=== PATIENT | male | born 1975 | race African-American/Black ===

== ENCOUNTER 2017-08-26 22:14 | Emergency (ER) | payer SELFPAY ==
[2017-08-26] MEDS ORDERED: NORMAL SALINE 1000 ML 1,000 ML IV ONE (22:24)
--- NOTE | 2017-08-26 23:04 | ER Document Report ---
ED Medical Screen (RME) - General Chief Complaint: HIGH GLUCLOSE Stated Complaint: POSSIBLE HIGH BLOOD SUGAR Time Seen by Provider: 08/26/17 22:58 Notes: Patient is a 41-year-old male who presents emergency department complaining of lethargy, nausea, vomiting, high blood sugar, urinary frequency for the past month. Patient states that he was diagnosed with diabetes back in March is been taking metformin and glyburide. He states that he is not on insulin or any injectables. States he has not seen a primary care provider since April. TRAVEL OUTSIDE OF THE [place] IN LAST 30 DAYS: No Past Medical History Renal/ Medical History: Denies: Hx Peritoneal Dialysis Physical Exam - Vital signs Vitals: Temp Pulse Resp BP Pulse Ox 98.4 F 109 H 20 163/90 H 98 08/26/17 22:20 08/26/17 22:20 08/26/17 22:20 08/26/17 22:20 08/26/17 22:20 Course - Vital Signs Vital signs: Temp Pulse Resp BP Pulse Ox 98.4 F 109 H 20 163/90 H 98 08/26/17 22:20 08/26/17 22:20 08/26/17 22:20 08/26/17 22:20 08/26/17 22:20
[2017-08-27 00:23] LABS: VENOUS BLOOD HCO3 29.5 mmol/L (20-32); VENOUS BLOOD PH 7.37 (7.30-7.42)
[2017-08-27 00:32] LABS: ALANINE AMINOTRANSFERASE 39 U/L (21-72); ALBUMIN 4.3 g/dL (3.5-5.0); ALKALINE PHOSPHATASE 94 U/L (38-126); ANION GAP 15 (5-19); ASPARTATE AMINO TRANSFERASE 26 U/L (17-59); BILIRUBIN,DIRECT 0.4 mg/dL (0.0-0.4); BILIRUBIN,TOTAL 0.5 mg/dL (0.2-1.3); BLOOD UREA NITROGEN 15 mg/dL (7-20); CARBON DIOXIDE 25 mmol/L (22-30); CHLORIDE 90 mmol/L (98-107); CREATININE RESULT 0.99 mg/dL (0.52-1.25); POTASSIUM 4.7 mmol/L (3.6-5.0); SODIUM 129.5 mmol/L (137-145); TOTAL PROTEIN 7.6 g/dL (6.3-8.2)
[2017-08-27 00:40] LABS: GLUCOSE 537 mg/dL (75-110)
[2017-08-27] MEDS ORDERED: INSULIN REG, HUMAN 100 UNIT/ML 3 ML VIAL (PYX) IV ONE (01:03)
[2017-08-27] MEDS ORDERED: NORMAL SALINE 1000 ML 1,000 ML IV ONE (01:03)
[2017-08-27 01:04] LABS: APPEARANCE,URINE CLEAR; BILIRUBIN,URINE NEGATIVE (NEGATIVE); GLUCOSE, URINE >=500 mg/dL (NEGATIVE); KETONES,URINE NEGATIVE (NEGATIVE); LEUKOCYTE ESTERASE,URINE NEGATIVE (NEGATIVE); NITRITE,URINE NEGATIVE (NEGATIVE); PROTEIN,URINE NEGATIVE (NEGATIVE); URINE SPECIFIC GRAVITY 1.029; UROBILINOGEN,URINE NEGATIVE mg/dL (<2.0)
--- NOTE | 2017-08-27 01:07 | ER Document Report ---
ED General - General Chief Complaint: High Blood Sugar Stated Complaint: POSSIBLE HIGH BLOOD SUGAR Time Seen by Provider: 08/26/17 22:58 Notes: Patient is a 41-year-old male with a past medical history of morbid obesity, type 2 diabetes, hypertension, hyperlipidemia who presents with concerns of hyperglycemia and generalized fatigue. Patient did just move from the area from [place] so does not yet have a local doctor. He notes for the past one month he has had polyuria and polydypsia. Nothing improves or worsens these symptoms. States they are constant and have been worsening since that time. Patient states that he is urinating 2-3 times an hour. Patient does admit to ongoing dietary indiscretions. States he has been taking metformin and glipizide without improvement of his symptoms. He has no history of diabetic ketoacidosis or HHS. He has not had any chest pain, infectious symptoms, abdominal pain, vomiting or diarrhea. TRAVEL OUTSIDE OF THE [place] IN LAST 30 DAYS: No - Related Data Allergies/Adverse Reactions: coconut Adverse Reaction (Severe, Verified 08/26/17 23:07) Swelling of Throat Past Medical History - General Information source: Patient - Social History Smoking Status: Current Every Day Smoker Chew tobacco use (# tins/day): No Frequency of alcohol use: None Drug Abuse: None Lives with: Spouse/Significant other Family History: Reviewed & Not Pertinent Patient has suicidal ideation: No Patient has homicidal ideation: No - Past Medical History Cardiac Medical History: Reports: Hx Hypercholesterolemia, Hx Hypertension Endocrine Medical History: Reports: Hx Diabetes Mellitus Type 2 Renal/ Medical History: Denies: Hx Peritoneal Dialysis Past Surgical History: Reports: Hx Cholecystectomy - in 1999 - Immunizations Hx Diphtheria, Pertussis, Tetanus Vaccination: Yes Review of Systems - Review of Systems Notes: Constitutional: Negative for fever. HENT: Negative for sore throat. Eyes: Negative for visual changes. Cardiovascular: Negative for chest pain. Respiratory: Negative for shortness of breath. Gastrointestinal: Negative for abdominal pain, vomiting or diarrhea. Genitourinary: Negative for dysuria. Musculoskeletal: Negative for back pain. Skin: Negative for rash. Neurological: Negative for headaches, weakness or numbness. 10 point ROS negative except as marked above and in HPI. Physical Exam - Vital signs Vitals: Temp Pulse Resp BP Pulse Ox 98.4 F 109 H 20 163/90 H 98 08/26/17 22:20 08/26/17 22:20 08/26/17 22:20 08/26/17 22:20 08/26/17 22:20 Interpretation: Tachycardic Notes: PHYSICAL EXAMINATION: GENERAL: Morbidly obese male. Well-appearing, well-nourished and in no acute distress. HEAD: Atraumatic, normocephalic. EYES: Pupils equal round and reactive to light, extraocular movements intact, sclera anicteric, conjunctiva are normal. ENT: nares patent, oropharynx clear without exudates. Moderately dry mucous membranes. NECK: Normal range of motion, supple without lymphadenopathy LUNGS: Breath sounds clear to auscultation bilaterally and equal. No wheezes rales or rhonchi. HEART: Regular tachycardia without murmurs ABDOMEN: Morbidly obese abdomen. Soft, nontender, normoactive bowel sounds. No guarding, no rebound. No masses appreciated. EXTREMITIES: Normal range of motion, no pitting or edema. No cyanosis. NEUROLOGICAL: No focal neurological deficits. Moves all extremities spontaneously and on command. PSYCH: Normal mood, normal affect. SKIN: Warm, Dry, normal turgor, no rashes or lesions noted. Course - Re-evaluation Re-evalutation: 08/27/17 01:04 Presentation of hyperglycemia with associated polyuria and polydipsia. Patient denies any symptoms to suggest an acute infectious etiology as the origin of his hyperglycemia. No chest pain to suggest ACS as the etiology. There is no evidence of HHS or diabetic ketoacidosis on laboratories or based on clinical history. Patient's vitals are within normal limits. They deny any acute focal complaints. Treatment with insulin and IV fluids given here in the emergency department with appropriate response of the blood sugar. Patient was instructed to continue taking their metformin and glipizide was increased to 5 mg daily, and patient advised they will likely need to increase dietary modification and may also need medication changes. Indications to return to emergency department as well as the importance of close outpatient follow-up were discussed at length. Patient verbalized understanding of the need for close follow-up and indications to return to the ED. - Vital Signs Vital signs: Temp Pulse Resp BP Pulse Ox 98.4 F 109 H 20 163/90 H 98 08/26/17 22:20 08/26/17 22:20 08/26/17 22:20 08/26/17 22:20 08/26/17 22:20 - Laboratory Result Diagrams: 08/27/17 00:00 Laboratory results interpreted by me: 08/27/17 08/27/17 08/27/17 00:00 00:00 00:41 Sodium 129.5 L Chloride 90 L Glucose 537 H* Hemoglobin A1c % 11.3 H Calcium 11.0 H Urine Glucose (UA) >=500 H Urine Blood SMALL H Discharge - Discharge Clinical Impression: Hyperglycemia, Polydipsia Condition: Good Disposition: HOME, SELF-CARE Additional Instructions: You need to followup urgently with your primary care doctor as your blood sugars were dangerously high today. You did not have any evidence of a dangerous condition associated with these blood sugars at this time. However, it is very important that you get your blood sugars under control. Please take all of your medications exactly as directed. Please increase the glipizide that you already have to 5 mg daily. If after 1 week your blood sugars continue to be elevated above 120 in the morning or 220 at any point during the day, increased to 10 mg daily. You should avoid foods that are high in carbohydrates and sugary foods. Losing weight will also help to better control your blood sugars. Please return to emergency department immediately if you develop weakness, persistent vomiting, confusion, or any other symptoms that are concerning to you. Prescriptions: Glipizide [Glipizide Xl] 10 mg PO DAILY #60 tab.er.[id number]
[2017-08-27 02:59] VITALS: BP 151/88
== END 2017-08-27 02:59 | disposition home or self-care (01) ==
LOC: ER 22:14
DX: E11.65 Type 2 diabetes mellitus with hyperglycemia (principal); Z79.84 Long term (current) use of oral hypoglycemic drugs; F17.200 Nicotine dependence, unspecified, uncomplicated; I10 Essential (primary) hypertension; R00.0 Tachycardia, unspecified; E66.01 Morbid (severe) obesity due to excess calories
CPT/HCPCS: 99284; 96360; 36415; 82962; 80053; 81001; 83036; 82803; J1815; J7030 ×2

== ENCOUNTER 2017-11-21 02:35 | Emergency (ER) | payer SELFPAY ==
[2017-11-21] MEDS ORDERED: NORMAL SALINE 1000 ML 1,000 ML IV ONE ×2 (02:50→03:58)
[2017-11-21 03:24] LABS: ABSOLUTE BASOPHILS # (AUTO) 0.2 10^3/uL (0.0-0.2); ABSOLUTE EOSINOPHILS # (AUTO) 0.3 10^3/uL (0.0-0.6); ABSOLUTE LYMPHOCYTES (AUTO) 2.8 10^3/uL (0.5-4.7); ABSOLUTE MONOCYTES (AUTO) 1.2 10^3/uL (0.1-1.4); ABSOLUTE NEUT (AUTO) 7.1 10^3/uL (1.7-8.2); BASOPHILS % (AUTO) 1.5 % (0-2); EOSINOPHILS % (AUTO) 2.3 % (0-6); HEMATOCRIT 45.9 % (37.9-51.0); HEMOGLOBIN 15.7 g/dL (13.5-17.0); LYMPHOCYTES % (AUTO) 24.2 % (13-45); MEAN CORPUSCULAR HEMOGLOBIN 27.7 pg (27.0-33.4); MEAN CORPUSCULAR HGB CONC 34.2 g/dL (32.0-36.0); MEAN CORPUSCULAR VOLUME 81 fl (80-97); MONOCYTES % (AUTO) 10.1 % (3-13); PLATELET COUNT 236 10^3/uL (150-450); RED BLOOD COUNT 5.66 10^6/uL (4.35-5.55); RED CELL DISTRIBUTION WIDTH 13.8 % (11.5-14.0); SEGMENTED NEUTROPHILS % (AUTO) 61.9 % (42-78); TOTAL CELLS COUNTED % (AUTO) 100 %; WHITE BLOOD COUNT 11.5 10^3/uL (4.0-10.5)
[2017-11-21 03:26] LABS: VENOUS BLOOD BASE EXCESS 0.9 mmol/L; VENOUS BLOOD HCO3 27.5 mmol/L (20-32); VENOUS BLOOD PCO2 50.7 mmHg (35-63); VENOUS BLOOD PH 7.35 (7.30-7.42)
[2017-11-21 03:42] LABS: ANION GAP 18 (5-19); BLOOD UREA NITROGEN 16 mg/dL (7-20); CARBON DIOXIDE 22 mmol/L (22-30); CHLORIDE 93 mmol/L (98-107); POTASSIUM 4.9 mmol/L (3.6-5.0); SODIUM 132.5 mmol/L (137-145)
[2017-11-21] MEDS ORDERED: INSULIN REG, HUMAN 100 UNIT/ML 3 ML VIAL (PYX) IV ONE (03:43)
[2017-11-21 03:51] LABS: GLUCOSE 552 mg/dL (75-110)
[2017-11-21] MEDS ORDERED: ONDANSETRON HCL INJ/PF 4 MG/2 ML SDV IV ONE (04:01)
[2017-11-21] MEDS ORDERED: DIPHENHYDRAMINE HCL 50 MG/ML VIAL IV ONE (04:03)
[2017-11-21] MEDS ORDERED: PROCHLORPERAZINE EDISYLATE INJ 10 MG/2 ML VIAL IV ONE (04:03)
--- NOTE | 2017-11-21 04:05 | ER Document Report ---
ED General - General Chief Complaint: High Blood Sugar Stated Complaint: BLOOD SUGAR PROBLEMS Time Seen by Provider: 11/21/17 02:49 Notes: Patient is a 42-year-old male with a past medical history of morbid obesity and diabetes who presents with nausea, vomiting, hyperglycemia, and feelings of dehydration. Patient reports that he has been taking metformin and glipizide as prescribed but his blood sugars continue to be quite high generally being above 300. He has not been able establish outpatient follow-up due to inability to obtain Medicaid. Nothing improves or worsens his symptoms. No known sick contacts. He denies any chest pain, abdominal pain, or altered mental status. Patient does note that he has had a continuous dull, constant, throbbing headache for the past 2 months ever since his blood sugars have been persistently high and that this is not new or different today. TRAVEL OUTSIDE OF THE [place] IN LAST 30 DAYS: No - Related Data Allergies/Adverse Reactions: coconut Adverse Reaction (Severe, Verified 08/26/17 23:07) Swelling of Throat Past Medical History - General Information source: Patient - Social History Smoking Status: Never Smoker Frequency of alcohol use: None Drug Abuse: None Lives with: Spouse/Significant other Family History: Reviewed & Not Pertinent Patient has suicidal ideation: No Patient has homicidal ideation: No - Past Medical History Cardiac Medical History: Reports: Hx Hypercholesterolemia, Hx Hypertension Endocrine Medical History: Reports: Hx Diabetes Mellitus Type 2 Renal/ Medical History: Reports: Hx Peritoneal Dialysis Past Surgical History: Reports: Hx Cholecystectomy - in 1999 - Immunizations Hx Diphtheria, Pertussis, Tetanus Vaccination: Yes Review of Systems - Review of Systems Notes: Constitutional: Negative for fever. HENT: Negative for sore throat. Eyes: Negative for visual changes. Cardiovascular: Negative for chest pain. Respiratory: Negative for shortness of breath. Gastrointestinal: Positive for vomiting. Genitourinary: Negative for dysuria. Musculoskeletal: Negative for back pain. Skin: Negative for rash. Neurological: Negative for headaches, weakness or numbness. 10 point ROS negative except as marked above and in HPI. Physical Exam - Vital signs Vitals: Temp Pulse Resp BP Pulse Ox 98.7 F 103 H 17 150/82 H 95 11/21/17 02:43 11/21/17 02:43 11/21/17 02:43 11/21/17 02:43 11/21/17 02:43 Interpretation: Tachycardic Notes: PHYSICAL EXAMINATION: GENERAL: Well-appearing, well-nourished and in no acute distress. HEAD: Atraumatic, normocephalic. EYES: Pupils equal round and reactive to light, extraocular movements intact, sclera anicteric, conjunctiva are normal. ENT: nares patent, oropharynx clear without exudates. Dry mucous membranes. NECK: Normal range of motion, supple without lymphadenopathy LUNGS: Breath sounds clear to auscultation bilaterally and equal. No wheezes rales or rhonchi. HEART: Regular rate and rhythm without murmurs ABDOMEN: Soft, nontender, normoactive bowel sounds. No guarding, no rebound. No masses appreciated. EXTREMITIES: Normal range of motion, no pitting or edema. No cyanosis. NEUROLOGICAL: No focal neurological deficits. Moves all extremities spontaneously and on command. PSYCH: Normal mood, normal affect. SKIN: Warm, Dry, normal turgor, no rashes or lesions noted. Course - Re-evaluation Re-evalutation: 11/21/17 04:00 Presentation of asymptomatic hyperglycemia. There is no evidence of HHS or diabetic ketoacidosis on laboratories or based on clinical history. Patient's vitals are within normal limits. They deny any acute focal complaints. Treatment with insulin and IV fluids given here in the emergency department with appropriate response of the blood sugar. Patient is continuing to work to establish outpatient follow-up.. Patient was instructed to continue taking their metformin and advised they will likely need to increase dietary modification and may also need medication changes. I have also increased the patient's glipizide from 10 mg daily to 20 mg daily. At this time will discharge with return precautions and follow-up recommendations. Verbal discharge instructions given a the bedside and opportunity for questions given. Medication warnings reviewed. Patient is in agreement with this plan and has verbalized understanding of return precautions and the need for primary care follow-up in the next 24-72 hours. - Vital Signs Vital signs: Temp Pulse Resp BP Pulse Ox 98.7 F 103 H 17 150/82 H 95 11/21/17 02:43 11/21/17 02:43 11/21/17 02:43 11/21/17 02:43 11/21/17 02:43 - Laboratory Result Diagrams: 11/21/17 03:10 12/30/17 03:10 Laboratory results interpreted by me: 11/21/17 11/21/17 11/21/17 02:43 03:10 03:10 WBC 11.5 H RBC 5.66 H Sodium 132.5 L Chloride 93 L Glucose 552 H* POC Glucose 518 H* Calcium 11.0 H Discharge - Discharge Clinical Impression: Hyperglycemia, Dehydration Condition: Good Disposition: HOME, SELF-CARE Additional Instructions: You need to followup urgently with your primary care doctor as your blood sugars were dangerously high today. You did not have any evidence of a dangerous condition associated with these blood sugars at this time. However, it is very important that you get your blood sugars under control. Please take all of your medications exactly as directed. You should avoid foods that are high in carbohydrates and sugary foods. Losing weight will also help to better control your blood sugars. Please return to emergency department immediately if you develop weakness, persistent vomiting, confusion, or any other symptoms that are concerning to you. Prescriptions: Glipizide [Glipizide Xl] 20 mg PO DAILY #60 tab.er.24
[2017-11-21 04:07] LABS: APPEARANCE,URINE CLEAR; BILIRUBIN,URINE NEGATIVE (NEGATIVE); COLOR,URINE STRAW; GLUCOSE, URINE >=500 mg/dL (NEGATIVE); KETONES,URINE 20 mg/dL (NEGATIVE); LEUKOCYTE ESTERASE,URINE NEGATIVE (NEGATIVE); NITRITE,URINE NEGATIVE (NEGATIVE); PROTEIN,URINE NEGATIVE (NEGATIVE); UROBILINOGEN,URINE NEGATIVE mg/dL (<2.0)
[2017-11-21 05:03] VITALS: BP 126/66
== END 2017-11-21 05:00 | disposition home or self-care (01) ==
LOC: ER 02:35
DX: E11.65 Type 2 diabetes mellitus with hyperglycemia (principal); Z79.84 Long term (current) use of oral hypoglycemic drugs; E86.0 Dehydration; R51 Headache; R11.10 Vomiting, unspecified; I10 Essential (primary) hypertension; R00.0 Tachycardia, unspecified
CPT/HCPCS: 99285; 96361; 96374; 96375; 36415; 82962; 85025; 80048; 81001; 84484; 82803; J1200; J1815; J0780; J7030

== ENCOUNTER → 2018-01-15 | Outpatient (CLI) | payer OTHER ==
[2018-01-15 13:56] LABS: HEMATOCRIT 42.5 % (37.9-51.0); HEMOGLOBIN 14.5 g/dL (13.5-17.0); MEAN CORPUSCULAR HEMOGLOBIN 27.4 pg (27.0-33.4); MEAN CORPUSCULAR HGB CONC 34.2 g/dL (32.0-36.0); MEAN CORPUSCULAR VOLUME 80 fl (80-97); PLATELET COUNT 245 10^3/uL (150-450); WHITE BLOOD COUNT 11.3 10^3/uL (4.0-10.5)
[2018-01-15 14:33] LABS: ALANINE AMINOTRANSFERASE 21 U/L (21-72); ALBUMIN 4.2 g/dL (3.5-5.0); ALKALINE PHOSPHATASE 83 U/L (38-126); ANION GAP 14 (5-19); ASPARTATE AMINO TRANSFERASE 14 U/L (17-59); BILIRUBIN,DIRECT 0.3 mg/dL (0.0-0.4); BILIRUBIN,TOTAL 0.3 mg/dL (0.2-1.3); BLOOD UREA NITROGEN 11 mg/dL (7-20); CALCIUM 10.1 mg/dL (8.4-10.2); CARBON DIOXIDE 24 mmol/L (22-30); CHLORIDE 98 mmol/L (98-107); CHOLESTEROL 106.33 mg/dL (0-200); GLUCOSE 281 mg/dL (75-110); POTASSIUM 4.8 mmol/L (3.6-5.0); TOTAL PROTEIN 7.4 g/dL (6.3-8.2); TRIGLYCERIDES 201 mg/dL (<150)
[2018-01-15 14:43] LABS: ABSOLUTE LYMPHOCYTES# (MANUAL) 3.5 10^3/uL (0.5-4.7); ABSOLUTE MONOCYTES # (MANUAL) 0.6 10^3/uL (0.1-1.4); ABSOLUTE NEUTROPHILS# (MANUAL) 7.1 10^3/uL (1.7-8.2); BASOPHILS % (MANUAL) 0 % (0-2); DIRECT LDL 43 mg/dL (<100); EOSINOPHILS % (MANUAL) 1 % (0-6); LYMPHOCYTES % (MANUAL) 31 % (13-45); MONOCYTES % (MANUAL) 5 % (3-13); SEGMENTED NEUTROPHILS % (MAN) 63 % (42-78); TOTAL CELLS COUNTED 100
[2018-01-15 14:45] LABS: VLDL CHOLESTEROL 40.2 mg/dL (10-31)
[2018-01-15 14:47] LABS: ANISOCYTOSIS SLIGHT; PLATELET COMMENT ADEQUATE; TOXIC GRANULATION SLIGHT
== END ==
LOC: CCC 12:22
DX: E10.8 Type 1 diabetes mellitus with unspecified complications (principal)
CPT/HCPCS: 36415; 80053; 80061; 82306; 83036; 84443; 85025

== ENCOUNTER → 2018-04-14 | Outpatient (CLI) | payer OTHER ==
--- NOTE | 2018-04-14 12:17 | RADIOLOGY REPORT (SQ) ---
EXAM DESCRIPTION: CHEST 2 VIEWS COMPLETED DATE/TIME: 04/14/2018 11:03 am REASON FOR STUDY: ABNORMAL WEIGHT LOSS (R63.4) COMPARISON: Motion artifact on lateral view due to large body habitus EXAM PARAMETERS: NUMBER OF VIEWS: two views TECHNIQUE: Digital Frontal and Lateral radiographic views of the chest acquired. RADIATION DOSE: NA LIMITATIONS: none FINDINGS: LUNGS AND PLEURA: No opacities, masses or pneumothorax. No pleural effusion. MEDIASTINUM AND HILAR STRUCTURES: No masses or contour abnormalities. HEART AND VASCULAR STRUCTURES: Heart normal size. No evidence for failure. BONES: No acute findings. HARDWARE: None in the chest. OTHER: No other significant finding. IMPRESSION: NO ACUTE RADIOGRAPHIC FINDING IN THE CHEST. TECHNICAL DOCUMENTATION: JOB ID: [id number] [employer]- All Rights Reserved Reading location - IP/workstation name: [email or web address]
== END ==
LOC: RAD 10:36
DX: R63.4 Abnormal weight loss (principal)
CPT/HCPCS: 71046

== ENCOUNTER 2018-06-21 13:01 | Emergency (ER) | payer OTHER ==
[2018-06-21] MEDS ORDERED: ASPIRIN 81 MG TABLET, CHEWABLE PO ONE (13:30)
[2018-06-21] MEDS ORDERED: KETOROLAC TROMETHAMINE 60 MG/2 ML SDV IM ONE (13:30)
--- NOTE | 2018-06-21 13:32 | ER Document Report ---
ED Medical Screen (RME) - General Chief Complaint: Chest Pain Stated Complaint: CHEST PAIN, BACK PAIN Time Seen by Provider: 06/21/18 13:29 Notes: 42 years old male with a history of hypertension presents today with left sided chest pain involving left upper back shoulder blade and left anterior chest wall for a week. Pain is persistent with on and off exacerbation. Increase in pain by movement of the left shoulder. Nauseous but no vomiting. Denies any palpitation or diaphoresis. He drives taxi. Denies any strong family history of heart disease,. TRAVEL OUTSIDE OF THE [place] IN LAST 30 DAYS: No - Related Data Allergies/Adverse Reactions: coconut Adverse Reaction (Severe, Verified 06/21/18 13:03) Swelling of Throat Past Medical History - Past Medical History Cardiac Medical History: Reports: Hx Hypercholesterolemia, Hx Hypertension Endocrine Medical History: Reports: Hx Diabetes Mellitus Type 2 Renal/ Medical History: Denies: Hx Peritoneal Dialysis Past Surgical History: Reports: Hx Cholecystectomy - in 1999 - Immunizations Hx Diphtheria, Pertussis, Tetanus Vaccination: Yes Physical Exam - Vital signs Vitals: Temp Pulse Resp BP Pulse Ox 98.9 F 91 16 157/95 H 97 06/21/18 13:23 06/21/18 13:23 06/21/18 13:23 06/21/18 13:23 06/21/18 13:23 Course - Vital Signs Vital signs: Temp Pulse Resp BP Pulse Ox 98.9 F 91 16 157/95 H 97 06/21/18 13:23 06/21/18 13:23 06/21/18 13:23 06/21/18 13:23 06/21/18 13:23 Doctor's Discharge - Discharge Referrals: [facility] [Primary Care Provider] - Follow up as needed
--- NOTE | 2018-06-21 14:23 | ER Document Report ---
ED General - General Chief Complaint: Chest Pain Stated Complaint: CHEST PAIN, BACK PAIN Time Seen by Provider: 06/21/18 13:29 Notes: 42-year-old obese, hypertensive, diabetic, smoker, -[place] male to the emergency department complaining of several day history of left-sided chest pain. Hurts to take a deep breath. Pain in the anterior left costochondral margins of the sternum and radiating around to the back. 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 Denies any fever, chills, sweats. No prior history of DVT or pulmonary embolism. Does not know his family history. Pain is described as sharp. Rated as a 3/5 on a numeric pain scale. Deep breaths, coughs and movement makes it worse. TRAVEL OUTSIDE OF THE [place] IN LAST 30 DAYS: No - HPI Onset: Last week Onset/Duration: Gradual, Persistent - Related Data Allergies/Adverse Reactions: coconut Adverse Reaction (Severe, Verified 06/21/18 13:03) Swelling of Throat Past Medical History - General Information source: Patient - Social History Smoking Status: Current Every Day Smoker Cigarette use (# per day): Yes Frequency of alcohol use: None Drug Abuse: None Lives with: Spouse/Significant other Family History: Reviewed & Not Pertinent Patient has suicidal ideation: No Patient has homicidal ideation: No - Past Medical History Cardiac Medical History: Reports: Hx Hypercholesterolemia, Hx Hypertension Endocrine Medical History: Reports: Hx Diabetes Mellitus Type 2 Renal/ Medical History: Denies: Hx Peritoneal Dialysis Past Surgical History: Reports: Hx Cholecystectomy - in 1999 - Immunizations Hx Diphtheria, Pertussis, Tetanus Vaccination: Yes Review of Systems - Review of Systems Constitutional: denies: Fever, Malaise, Weakness EENT: Other - Left toothache. denies: Ear pain, Throat pain, Difficulty swallowing Cardiovascular: Chest pain. denies: Palpitations, Heart racing Respiratory: Cough, Hurts to breathe. denies: Short of breath, Wheezing Gastrointestinal: denies: Abdominal pain, Diarrhea, Nausea, Vomiting Musculoskeletal: See HPI, Back pain. denies: Joint pain, Muscle pain Skin: denies: Change in color, Dryness, Lesions, Lumps, Rash Hematologic/Lymphatic: denies: Anemia, Blood clots, Easy bleeding, Easy bruising Neurological/Psychological: denies: Confusion, Weakness, Numbness Physical Exam - Vital signs Vitals: Temp Pulse Resp BP Pulse Ox 98.9 F 91 16 157/95 H 97 06/21/18 13:23 06/21/18 13:23 06/21/18 13:23 06/21/18 13:23 06/21/18 13:23 Interpretation: Normal - General General appearance: Appears well, Alert - HEENT Head: Normocephalic, Atraumatic Eyes: Normal Pupils: PERRL - Respiratory Respiratory status: No respiratory distress Chest status: Nontender Breath sounds: Normal Chest palpation: Normal - Cardiovascular Rhythm: Regular Heart sounds: Normal auscultation Murmur: No Notes: There is tenderness to palpation of the left anterior costochondral margin at the sternum at approximately the level of 67, mild increased pain with movement of the arm. - Abdominal Inspection: Normal Distension: No distension Bowel sounds: Normal Tenderness: Nontender Organomegaly: No organomegaly - Back Back: Normal, Nontender - Extremities General upper extremity: Normal inspection, Nontender, Normal color, Normal ROM , Normal temperature General lower extremity: Normal inspection, Nontender, Normal color, Normal ROM , Normal temperature, Normal weight bearing. No: Lashawn's sign - Neurological Neuro grossly intact: Yes Cognition: Normal Orientation: AAOx4 Gopi Coma Scale Eye Opening: Spontaneous Gopi Coma Scale Verbal: Oriented Gopi Coma Scale Motor: Obeys Commands Alden Coma Scale Total: 15 Speech: Normal Motor strength normal: LUE, RUE, LLE, RLE Sensory: Normal - Psychological Associated symptoms: Normal affect, Normal mood - Skin Skin Temperature: Warm Skin Moisture: Dry Skin Color: Normal Course - Re-evaluation Re-evalutation: 06/21/18 15:53 Patient is feeling a bit better after the Toradol. States that it really only hurts when he coughs or moves his arm around. Tender to the touch. Symptoms have been present for several days. Exertion does not seem to make it worse. At this time feel like his symptoms are more likely consistent with an inflammatory process. Patient does have a infected tooth as well. I am advising him to continue with daily aspirin, start antibiotics, Motrin or other anti-inflammatories for the pain. Return immediately if developing any pain in the chest that is different or worse, pain radiating to his jaw or left arm, shortness of breath, heaviness on the chest, feeling of impending doom or for any other concerns. - Vital Signs Vital signs: Temp Pulse Resp BP Pulse Ox 98.9 F 91 15 146/86 H 95 06/21/18 13:23 06/21/18 13:23 06/21/18 15:01 06/21/18 15:01 06/21/18 15:01 - Laboratory Result Diagrams: 06/21/18 13:55 06/21/18 13:55 Laboratory results interpreted by me: 06/21/18 06/21/18 13:55 13:55 RDW 14.4 H Glucose 185 H Creatine Kinase 380 H - EKG Interpretation by [place] EKG shows normal: Sinus rhythm, [place], Intervals, QRS Complexes. abnormal: ST-T Waves Additional EKG results interpreted by me: 06/21/18 14:[address] segment elevations. There is some inverted T waves in the anterior lateral leads. Discharge - Discharge Clinical Impression: Anterior chest wall pain, Costochondritis, Dental caries Condition: Good Disposition: HOME, SELF-CARE Instructions: Chest Wall Pain ([facility]), Aspirin (Cardiac) ([facility]), Anti- Inflammatory Medication ([facility]), Dental Infection or Abscess ([facility]) Additional Instructions: In the event that you develop shortness of breath, worsening pain, pain in the arm or neck, shortness of breath, heaviness on the chest, feeling of doom or any other concerns return immediately. Prescriptions: Amoxicillin Trihydrate [Amoxil 500 mg Capsule] 500 mg PO TID 7 Days #21 capsule Referrals: [facility] [Primary Care Provider] - Follow up in 3-5 days
[2018-06-21 14:36] LABS: ABSOLUTE BASOPHILS # (AUTO) 0.1 10^3/uL (0.0-0.2); ABSOLUTE EOSINOPHILS # (AUTO) 0.2 10^3/uL (0.0-0.6); ABSOLUTE LYMPHOCYTES (AUTO) 2.4 10^3/uL (0.5-4.7); ABSOLUTE MONOCYTES (AUTO) 0.8 10^3/uL (0.1-1.4); ABSOLUTE NEUT (AUTO) 6.5 10^3/uL (1.7-8.2); BASOPHILS % (AUTO) 0.6 % (0-2); EOSINOPHILS % (AUTO) 2.2 % (0-6); HEMATOCRIT 44.3 % (37.9-51.0); HEMOGLOBIN 15.4 g/dL (13.5-17.0); MEAN CORPUSCULAR HGB CONC 34.7 g/dL (32.0-36.0); MEAN CORPUSCULAR VOLUME 81 fl (80-97); MONOCYTES % (AUTO) 8.4 % (3-13); PLATELET COUNT 250 10^3/uL (150-450); RED BLOOD COUNT 5.49 10^6/uL (4.35-5.55); RED CELL DISTRIBUTION WIDTH 14.4 % (11.5-14.0); SEGMENTED NEUTROPHILS % (AUTO) 64.8 % (42-78); TOTAL CELLS COUNTED % (AUTO) 100 %
--- NOTE | 2018-06-21 14:52 | RADIOLOGY REPORT (SQ) ---
EXAM DESCRIPTION: CHEST SINGLE VIEW portable COMPLETED DATE/TIME: 06/21/2018 2:41 pm REASON FOR STUDY: Chest pain COMPARISON: 04/14/2018 EXAM PARAMETERS: NUMBER OF VIEWS: One view. TECHNIQUE: Single frontal radiographic view of the chest acquired. RADIATION DOSE: NA LIMITATIONS: None. FINDINGS: LUNGS AND PLEURA: No opacities, masses or pneumothorax. No pleural effusion. MEDIASTINUM AND HILAR STRUCTURES: No masses. Contour normal. HEART AND VASCULAR STRUCTURES: Heart normal in size. Normal vasculature. BONES: No acute findings. HARDWARE: None in the chest. OTHER: No other significant finding. IMPRESSION: NO ACUTE RADIOGRAPHIC FINDING IN THE CHEST. TECHNICAL DOCUMENTATION: JOB ID: [id number] [employer]- All Rights Reserved Reading location - IP/workstation name: [email or web address]
[2018-06-21 14:58] LABS: ALANINE AMINOTRANSFERASE 30 U/L (21-72); ALBUMIN 4.5 g/dL (3.5-5.0); ALKALINE PHOSPHATASE 63 U/L (38-126); ANION GAP 16 (5-19); ASPARTATE AMINO TRANSFERASE 26 U/L (17-59); BILIRUBIN,DIRECT 0.3 mg/dL (0.0-0.4); BILIRUBIN,TOTAL 0.3 mg/dL (0.2-1.3); BLOOD UREA NITROGEN 8 mg/dL (7-20); CALCIUM 10.2 mg/dL (8.4-10.2); CARBON DIOXIDE 28 mmol/L (22-30); CHLORIDE 99 mmol/L (98-107); CREATINE KINASE 380 U/L (55-170); GLUCOSE 185 mg/dL (75-110); POTASSIUM 4.5 mmol/L (3.6-5.0); SODIUM 142.5 mmol/L (137-145); TOTAL PROTEIN 8.1 g/dL (6.3-8.2)
[2018-06-21 15:07] LABS: CREATINE KINASE MB 1.38 ng/mL (<4.55)
[2018-06-21 15:18] LABS: TROPONIN I < 0.012 ng/mL
[2018-06-21 16:25] VITALS: BP 126/77
--- NOTE | 2018-06-21 17:56 | EKG REPORT ---
SEVERITY:- NORMAL ECG - SINUS RHYTHM : Confirmed by: Nara Cooper 21-Jun-2018 17:55:42
== END 2018-06-21 16:26 | disposition home or self-care (01) ==
LOC: ER 13:01
DX: M94.0 Chondrocostal junction syndrome [Tietze] (principal); R07.89 Other chest pain; K02.9 Dental caries, unspecified; E66.9 Obesity, unspecified; Z68.42 Body mass index [BMI] 45.0-49.9, adult; M54.9 Dorsalgia, unspecified; I10 Essential (primary) hypertension; J44.9 Chronic obstructive pulmonary disease, unspecified; F17.210 Nicotine dependence, cigarettes, uncomplicated; E11.9 Type 2 diabetes mellitus without complications; R05 Cough; K08.89 Other specified disorders of teeth and supporting structures; Z79.82 Long term (current) use of aspirin
CPT/HCPCS: 93005; 99285; 96372; 36415; 82553; 82550; 85025; 80053; 84484; 71045; 93010; J1885